=== PATIENT | male | born 1975 | race Caucasian/White ===

== ENCOUNTER 2016-08-18 12:07 | Emergency (ER) | payer MEDICAID ==
[2016-08-18] MEDS ORDERED: ASPIRIN CHEW 81 MG TABLET PO STA (14:31)
[2016-08-18] MEDS ORDERED: ASPIRIN CHEW 81 MG TABLET ONE (14:33)
== END 2016-08-18 17:33 | disposition home or self-care (01) ==
DX: R07.89 Other chest pain (principal); Z82.49 Family history of ischemic heart disease and other diseases of the circulatory system; F17.200 Nicotine dependence, unspecified, uncomplicated